=== PATIENT | male | born 1940 | race Caucasian/White ===

== ENCOUNTER 2018-01-17 12:01 | Observation (INO) | payer OTHER ==
[2018-01-17 12:52] LABS: ADD MAN DIFF? NO
[2018-01-17 12:58] LABS: BASO % 1 % (0-3); EOS # 0.1 x10^3/uL (0.0-0.7); EOS % 2 % (0-3); HEMATOCRIT 37.4 % (39.0-53.0); HEMOGLOBIN 12.6 g/dL (13.0-17.5); LYMPH # 0.6 x10^3/uL (1.0-4.8); LYMPH % 12 % (24-48); MEAN CORPUSCULAR HEMOGLOBIN 33 pg (25-35); MEAN CORPUSCULAR HGB CONC 34 g/dL (31-37); MEAN CORPUSCULAR VOLUME 99 fL (79-100); MONO # 0.5 x10^3/uL (0.0-1.1); MONO % 10 % (0-9); NEUT # 3.9 x10^3uL (1.8-7.7); NEUT % 75 % (31-73); PLATELET COUNT 150 x10^3/uL (140-400); RED BLOOD COUNT 3.77 x10^6/uL (4.30-5.70); RED CELL DISTRIBUTION WIDTH 13.2 % (11.5-14.5); WHITE BLOOD COUNT 5.2 x10^3/uL (4.0-11.0)
[2018-01-17] MEDS: ONDANSETRON PF 4 MG/2 ML VIAL. IV (12:58)
[2018-01-17 13:04] LABS: ANION GAP 6 (6-14); BLOOD UREA NITROGEN 19 mg/dL (8-26); BUN/CREATININE RATIO 14 (6-20); CALCIUM 8.4 mg/dL (8.5-10.1); CARBON DIOXIDE 32 mmol/L (21-32); CHLORIDE 101 mmol/L (98-107); CREATININE 1.4 mg/dL (0.7-1.3); GLUCOSE 139 mg/dL (70-99); POTASSIUM 4.2 mmol/L (3.5-5.1); SODIUM 139 mmol/L (136-145)
[2018-01-17 13:07] LABS: BILIRUBIN,URINE NEGATIVE (NEG); CLARITY,URINE CLEAR; COLOR,URINE YELLOW; GLUCOSE,URINE NEGATIVE (NEG); NITRITE,URINE NEGATIVE (NEG); PROTEIN,URINE NEGATIVE (NEG-TRACE)
[2018-01-17 13:09] LABS: INR 1.2 (0.8-1.1); PROTHROMBIN TIME PATIENT 14.3 SEC (11.7-14.0)
[2018-01-17 13:10] LABS: ALBUMIN 3.4 g/dL (3.4-5.0); ALBUMIN/GLOBULIN RATIO 1.1 (1.0-1.7); ALK PHOS 85 U/L (46-116); ALT (SGPT) 18 U/L (16-63); AST (SGOT) 17 U/L (15-37); LIPASE 86 U/L (73-393); MAGNESIUM 2.1 mg/dL (1.8-2.4); TOTAL BILIRUBIN 0.6 mg/dL (0.2-1.0); TOTAL PROTEIN 6.5 g/dL (6.4-8.2)
[2018-01-17 13:12] LABS: TROPONINI < 0.017 ng/mL (0.000-0.055)
[2018-01-17 13:16] LABS: RBC,URINE 0 /HPF (0-2); SQUAMOUS EPITHELIAL CELL,UR OCC /LPF; WBC,URINE 0 /HPF (0-4)
[2018-01-17 13:17] LABS: BACTERIA,URINE 0 /HPF (0-FEW)
[2018-01-17 13:20] LABS: CKMB MASS 0.8 ng/mL (0.0-3.6); CREATINE KINASE 69 U/L (39-308)
[2018-01-17 14:14] LABS: NT-PRO BNP 4669 pg/mL (0-449)
[2018-01-17] MEDS ORDERED: fentaNYL PF VIAL 100 MCG/2 ML VIAL IV (14:15)
[2018-01-17] MEDS ORDERED: ONDANSETRON PF 4 MG/2 ML VIAL. IV ×2 (14:15→17:30)
[2018-01-17] MEDS ORDERED: ACETAMINOPHEN 325 MG TABLET. PO ×2 (14:15→17:30)
[2018-01-17] MEDS ORDERED: NITROGLYCERIN SUBLINGUAL 0.4 MG BOTTLE OF 25. SL (14:45)
[2018-01-17] MEDS ORDERED: CARVEDILOL 3.125 MG TABLET. PO (17:00)
[2018-01-17] MEDS ORDERED: hydrALAZINE 20 MG/ML VIAL. IVP (17:30)
[2018-01-17] MEDS ORDERED: MORPHINE SULFATE 2 MG/ML DISP.SYRIN. IV (17:30)
[2018-01-17] MEDS ORDERED: DOCUSATE SODIUM 100 MG CAPSULE. PO (17:30)
[2018-01-17] MEDS: ENOXAPARIN 40 MG/0.4 ML SYRINGE. SQ (18:03)
[2018-01-17 20:36] LABS: TROPONINI 0.019 ng/mL (0.000-0.055)
[2018-01-17] MEDS: ATORVASTATIN CALCIUM 20 MG TABLET PO (20:57)
[2018-01-18 05:27] LABS: ADD MAN DIFF? NO
[2018-01-18 05:33] LABS: BASO % 1 % (0-3); EOS # 0.2 x10^3/uL (0.0-0.7); EOS % 4 % (0-3); HEMATOCRIT 35.3 % (39.0-53.0); HEMOGLOBIN 12.2 g/dL (13.0-17.5); LYMPH # 1.1 x10^3/uL (1.0-4.8); LYMPH % 21 % (24-48); MEAN CORPUSCULAR HEMOGLOBIN 34 pg (25-35); MEAN CORPUSCULAR HGB CONC 35 g/dL (31-37); MEAN CORPUSCULAR VOLUME 98 fL (79-100); MONO # 0.6 x10^3/uL (0.0-1.1); MONO % 12 % (0-9); NEUT # 3.3 x10^3uL (1.8-7.7); NEUT % 64 % (31-73); PLATELET COUNT 136 x10^3/uL (140-400); RED BLOOD COUNT 3.59 x10^6/uL (4.30-5.70); RED CELL DISTRIBUTION WIDTH 12.9 % (11.5-14.5); WHITE BLOOD COUNT 5.2 x10^3/uL (4.0-11.0)
[2018-01-18] MEDS: PANTOPRAZOLE 40 MG TABLET.DR. PO (06:02)
[2018-01-18 06:28] LABS: ALBUMIN 3.2 g/dL (3.4-5.0); ALBUMIN/GLOBULIN RATIO 1.1 (1.0-1.7); ALK PHOS 76 U/L (46-116); ALT (SGPT) 439 U/L (16-63); ANION GAP 3 (6-14); BLOOD UREA NITROGEN 18 mg/dL (8-26); BUN/CREATININE RATIO 13 (6-20); CALCIUM 8.4 mg/dL (8.5-10.1); CARBON DIOXIDE 34 mmol/L (21-32); CHLORIDE 101 mmol/L (98-107); CREATININE 1.4 mg/dL (0.7-1.3); GLUCOSE 98 mg/dL (70-99); POTASSIUM 3.9 mmol/L (3.5-5.1); SODIUM 138 mmol/L (136-145); TOTAL BILIRUBIN 0.5 mg/dL (0.2-1.0)
[2018-01-18 06:31] LABS: AST (SGOT) 1049 U/L (15-37)
[2018-01-18] MEDS: FUROSEMIDE 80 MG TABLET. PO (09:00)
[2018-01-18] MEDS ORDERED: CLOPIDOGREL BISULFATE 75 MG TABLET PO (09:00)
[2018-01-18] MEDS: ISOSORBIDE MONONITRATE ER 30 MG TAB.ER.24H PO ×2 (09:00→11:03)
[2018-01-18] MEDS ORDERED: LISINOPRIL 5 MG TABLET. PO (09:00)
[2018-01-18] MEDS: LISINOPRIL 5 MG TABLET. PO (09:00)
[2018-01-18] MEDS: amLODIPine BESYLATE 10 MG TABLET PO (10:02)
[2018-01-18] MEDS: TAMSULOSIN 0.4 MG CAP.ER.24H. PO (10:02)
[2018-01-18] MEDS: POTASSIUM CHLORIDE 20 MEQ TABLET.ER. PO (10:03)
[2018-01-18] MEDS: BUMETANIDE 1 MG/4 ML VIAL. IV (10:03)
[2018-01-18] MEDS: ASPIRIN ENTERIC COATED 81 MG TABLET.DR. PO (10:03)
== END 2018-01-18 13:35 | disposition home or self-care (01) ==
LOC: 2 SOUTH 15:48 → ER 12:01 → 2 SOUTH 13:43
DX: R55 Syncope and collapse (principal); I13.0 Hypertensive heart and chronic kidney disease with heart failure and stage 1 through stage 4 chronic kidney disease, or unspecified chronic kidney disease; I25.10 Atherosclerotic heart disease of native coronary artery without angina pectoris; H91.90 Unspecified hearing loss, unspecified ear; I44.7 Left bundle-branch block, unspecified; I63.9 Cerebral infarction, unspecified; I50.30 Unspecified diastolic (congestive) heart failure; I65.23 Occlusion and stenosis of bilateral carotid arteries; K21.9 Gastro-esophageal reflux disease without esophagitis; M47.812 Spondylosis without myelopathy or radiculopathy, cervical region; N18.3 Chronic kidney disease, stage 3 (moderate); Z82.49 Family history of ischemic heart disease and other diseases of the circulatory system; Z82.5 Family history of asthma and other chronic lower respiratory diseases; Z90.49 Acquired absence of other specified parts of digestive tract; Z95.1 Presence of aortocoronary bypass graft; Z95.2 Presence of prosthetic heart valve
CPT/HCPCS: 36415; 70450; 70551; 71045; 72125; 80053; 81001; 82553; 83690; 83735; 83880; 84484; 85025; 85610; 93005; 93306; 93880; 96372; 96374; 96375; 97161-GP; 97165-GO; 99285-25; G0378; G0379; J1650; J2405; J3490

== ENCOUNTER 2018-11-20 14:20 | Emergency (ER) | payer OTHER ==
[~2018-11-20] VITALS: Ht 182.9 cm; Wt 99.3 kg
[~2018-11-20 14:20] MED LIST: AMLO10TA8 PO; ASPI-482 PO; ATOR20TA58 PO; CARV3.12 PO; CLOP75TA57 PO; FURO-68 PO; ISOS30TA4 PO; LEVO750T5 PO; LISI-338 PO; LISI10TA2 PO; LISI2.5T PO; METO25TA4 PO; NITR0.4T22 SL; PANT20TA2 PO; POTA20TA82 PO; PRED20TA PO; TAMS0.4C2 PO; TAMS0.4C97 PO; TRIA1TAB2 PO
[2018-11-20 15:00] VITALS: BP 170/72
--- NOTE | 2018-11-20 16:01 | PHYS DOC ---
Past Medical History Past Medical History: CHF, GERD, Hypertension, [place] (YEE HORTON APRN) Past Surgical History: Appendectomy, Cholecystectomy, Coronary Bypass Surgery, Tonsillectomy Additional Past Surgical Histo: back ,ankle,carotid left. CATERACTS, L EYE STENT (YEE HORTON APRN) Alcohol Use: None Drug Use: None (YEE HORTON APRN) Adult General Chief Complaint Chief Complaint: OTHER COMPLAINTS [facility] HPI Patient is a 78 year old male presents with his at the request of the nurse practitioner at his primary care doctor's office for evaluation and follow-up for arterial ultrasounds that were done in bilateral legs at diagnostic imaging center today. Ultrasounds indicate bilateral lower extremity aneurysms as well as an abdominal aortic aneurysm measuring 5.8 cm. Patient states he is not having any shortness of breath, chest pain, abdominal or back pain. He was seen at his primary care doctor's office last week because both of his legs have been pruritic. reports they're treating him for a fungal infection on his feet. At that time it was decided to have ultrasounds done on both legs for evaluation, states they did this because it hadn't previously been done. He was not having any pain in the legs. His left lower extremity is swollen more than the right but they both tell me that this is normal and it is actually much less than usual. He is on Lasix which helps with this. (YEE HORTON APRN) Review of Systems Review of Systems Constitutional: Denies fever or chills [] Eyes: Denies change in visual acuity, redness, or eye pain [] HENT: Denies nasal congestion or sore throat [] Respiratory: Denies cough or shortness of breath [] Cardiovascular: No additional information not addressed in HPI [] GI: Denies abdominal pain, nausea, vomiting, bloody stools or diarrhea [] : Denies dysuria or hematuria [] Musculoskeletal: Denies back pain or joint pain [] Integument: Denies rash or skin lesions [] Neurologic: Denies headache, focal weakness or sensory changes [] Endocrine: Denies polyuria or polydipsia [] All other systems were reviewed and found to be within normal limits, except as documented in this note. (YEE HORTON APRN) Allergies Allergies Allergies Coded Allergies Type Severity Reaction Last Updated Verified oxycodone Adverse Reaction Intermediate Anxiety 01/17/18 Yes (KLARISSA TIM MD) Physical Exam Physical Exam Constitutional: Well developed, well nourished, no acute distress, non-toxic appearance. [] Neck: Normal range of motion, no tenderness, supple, no stridor. [] Cardiovascular:Heart rate regular rhythm, [] Lungs & Thorax: Bilateral breath sounds clear to auscultation [] Abdomen: Bowel sounds normal, soft, no tenderness, no masses, no pulsatile masses. [] Skin: Warm, dry, no erythema, no rash. [] Back: No tenderness, no CVA tenderness. [] Extremities: Left lower extremity +1 pitting edema, right lower extremity mild edema, no erythema or warmth, pulses equal and intact. [] Neurologic: Alert and oriented X 3, normal motor function, normal sensory function, no focal deficits noted. [] Psychologic: Affect normal, judgement normal, mood normal. [] (YEE HORTON APRN) Current Patient Data Vital Signs Vital Signs Date Time Temp Pulse Resp B/P (MAP) Pulse Ox O2 Delivery O2 Flow Rate FiO2 11/20/18 15:00 98.9 61 17 170/72 (104) 96 Room Air 98.9 (KLARISSA TIM MD) EKG EKG [] (YEE HORTON APRN) Radiology/Procedures Radiology/Procedures [] (YEE HORTON APRN) Course & Med Decision Making Course & Med Decision Making Pertinent Labs and Imaging studies reviewed. (See chart for details) [I consulted with Dr. Bell of vascular surgery, he recommends outpatient follow-up in his office since patient is asymptomatic today in the emergency room. Patient will be provided with referral information. Discussed this with and patient, they agree with this plan of care. Verbalizes understanding of discharge instructions.] (YEE HORTON APRN) Course & Med Decision Making I was available for consultation regarding this patient's care. I did not see or evaluate the patient unless otherwise specified. (KLARISSA TIM MD) Dragon Disclaimer Dragon Disclaimer This electronic medical record was generated, in whole or in part, using a voice recognition dictation system. (YEE HORTON APRN) Departure Departure Impression: Primary Impression: Aneurysm Disposition: HOME, SELF-CARE Condition: STABLE Referrals: SARA WALKER (PCP) JEREMÍAS BELL II, MD Patient Instructions: Abdominal Aortic Aneurysm Additional Instructions: Call Dr. Bell's office to schedule a follow-up with vascular surgery regarding the abdominal aortic aneurysm noted on the ultrasound that was done at diagnostic imaging center today. YEE HORTON APRN Nov 20, 2018 16:01 KLARISSA TIM MD Nov 20, 2018 17:54
== END 2018-11-20 16:07 | disposition home or self-care (01) ==
LOC: ER 14:20
DX: I71.4 Abdominal aortic aneurysm, without rupture (principal); I11.0 Hypertensive heart disease with heart failure; I50.9 Heart failure, unspecified; K21.9 Gastro-esophageal reflux disease without esophagitis; I25.2 Old myocardial infarction; Z90.89 Acquired absence of other organs; Z90.49 Acquired absence of other specified parts of digestive tract; Z95.1 Presence of aortocoronary bypass graft; Z88.5 Allergy status to narcotic agent
CPT/HCPCS: 99281